=== PATIENT | female | born 1960 | race Caucasian/White ===

== ENCOUNTER → 2017-01-18 | Outpatient (CLI) | payer MEDICAID ==
[~2017-01-18] MED LIST: NOMEDS XX; NORCO 325 MG-51 TAB PO
[2017-01-18 16:05] LABS: LYMPH # 2.6 K/mm3 (0.7-4.5); LYMPH % 35.2 % (10-50.0)
[2017-01-18 16:18] LABS: HEMOGLOBIN 15.8 g/dL (12.2-16.2)
[2017-01-18 22:34] LABS: BUN 16 mg/dL (7-18)
[2017-01-18 22:36] LABS: GFR (ESTIMATED) 87 ML/MIN (59-)
--- NOTE | 2017-01-18 23:09 | RADIOLOGY REPORT PS360 ---
CT EXT.LOWER-RT-W/O CONTRAST 3-D volume rendering with shading Ordering Physician: MARY ZAPATA MD Patient Age: 56 years: Female HISTORY: TRIMALLEOLAR FXtrimalleolar fracture. Trauma TECHNIQUE: Axial CT scanning performed through the ankle with multiplanar reconstructions. It also 3-D volume rendering with shading performed on independent workstation a 77 CPT FINDINGS Trimalleolar fracture again seen Spiral fracture the distal fibula. 4.5 mm posterior displacement , near 3 mm lateral displacement & and minor superior displacement of the distal fibular fracture fragment. The most prominent soft tissue swelling is seen overlying the lateral malleolus and throughout the lateral ankle to the foot Posterior malleolar fracture The axial view image 36, 38 nicely demonstrate the posterior malleolar fracture. This fracture transverses the base the lateral malleolus and continues towards the medial malleolus on these images. Mildly comminuted in its course particularly as it approaches passes through the base of the medial malleolus posteriorly. . Medial malleolar fracture passing vertically through the tip of medial malleolus. Is also nicely seen on axial images. Only minimal 2.5 mm superior offset of the medial malleolus fragment.. Generous soft tissue swelling inferior to the medial malleolus. The dome of talus is intact relationships at the plafond appear fairly satisfactory. Metatarsals appear intact with no acute fracture identified. Subtalar joint appears intact. Calcaneus intact. Plantar calcaneal spur. Although not appreciated on the 2-D images on 3-D images question slight rotational component at the ankle join. With the medial malleolus slightly anterior in the lateral malleolus slightly posterior. Clinical correlation required : IMPRESSION.... Trimalleolar fracture is additionally detailed on today's CT images.., Including 3-D volume rendering image set
--- NOTE | 2017-01-18 23:10 | RADIOLOGY REPORT PS360 ---
CHEST(2 VIEWS-NOT PORTABLE) Ordering physician: MARY ZAPATA MD Age: 56 years Female INDICATION: chest symptomsTOBACCO USE. PROCEDURE: CHEST(2 VIEWS-NOT PORTABLE) FINDINGS: No prior Lungs hyperexpanded but clear with nothing definitely acute. Hyperexpansion, COPD. Heart normal size. Calcified granuloma 5 mm x 6. Heart modest size. Hilar regions appear normal. There are some small calcified nodes hilar regions and subcarinal area reflecting old granulomatous disease. Size at right middle lobe anteriorly. Chest wall unremarkable. T-spine intact. IMPRESSION ----- Lungs clear nothing definitely acute . COPD
== END ==
LOC: RAD 07:58 → RT 07:58 → RAD 08:00
PROVIDERS: Orthopaedic Surgery
DX: S82.851A Displaced trimalleolar fracture of right lower leg, initial encounter for closed fracture (principal); Z01.810 Encounter for preprocedural cardiovascular examination; Z01.811 Encounter for preprocedural respiratory examination; Z01.812 Encounter for preprocedural laboratory examination

== ENCOUNTER → 2017-08-05 | Outpatient (CLI) | payer MEDICAID ==
--- NOTE | 2017-08-05 11:34 | RADIOLOGY REPORT PS360 ---
ANKLE-RT-3 VIEWS HISTORY: Follow-up fracture/ORIF HEALING OF RT ANKLE FX ORDERING PHYSICIAN: MARY ZAPATA MD PATIENT AGE: 57 years COMPARISON: 05/05/2017 FINDINGS: Status post ORIF with a bone plate over the distal fibula and 2 screws within the distal tibia one within the medial malleolus region and one projecting anterior to posterior. There is good bony alignment. Fracture lines are not well delineated consistent with healing. There is generalized osteopenia. IMPRESSION: Overall no change status post ORIF trimalleolar fracture with good alignment
== END ==
LOC: RAD 08:16
DX: S82.851D Displaced trimalleolar fracture of right lower leg, subsequent encounter for closed fracture with routine healing (principal)